=== PATIENT | female | born 1955 | race Asian ===

== ENCOUNTER 2023-01-22 19:18 | Inpatient (IN) | payer OTHER ==
[~2023-01-22] VITALS: Ht 157.5 cm; Wt 54.3 kg
[2023-01-22] MEDS ORDERED: ALBUTEROL SULFATE 2.5 MG/0.5 ML NEB SOLUTION NEB ONE (19:30)
[2023-01-22] MEDS ORDERED: IPRATROPIUM BROMIDE 0.5 MG/2.5 ML NEB SOLUTION NEB ONE (19:30)
[2023-01-22 19:47] LABS: ABG BASE EXCESS -7.2 mmol/L (-2.0-3.0); ABG METHEMOGLOBIN 0.2 % (0.0-1.5); ABG OXYGEN CONTENT 17.2 mL/dL (15.0-23.0); ABG OXYGEN SATURATION 85.5 % (95.0-98.0); ABG OXYHEMOGLOBIN 85.3 % (94.0-100.0); ABG PCO2 37 mmHg (35-45); ABG PH 7.329 (7.35-7.450); ABG TOTAL HEMOGLOBIN 14.4 G/dL (12.0-18.0); PO2, ARTERIAL BG 55.3 mmHg (79.0-87.0); SOURCE, BLOOD GAS ARTERIAL; TEMPERATURE, FAHRENHEIT, BG 98.6 FAHREN (96.0-98.6)
[2023-01-22 19:51] LABS: SITE, BLOOD GAS LFT RADIAL
[2023-01-22 19:52] LABS: O2 DEVICE,BLOOD GAS BIPAP (ROOM AIR)
[2023-01-22 19:58] LABS: COVID AG,FIA SOURCE NASAL SWAB
[2023-01-22 20:04] LABS: BASOPHILS % (AUTO) 0.4 % (0.0-2.0); EOSINOPHILS % (AUTO) 0.8 % (1.0-6.0); HEMATOCRIT 42.5 % (36-46); HEMOGLOBIN 13.9 g/dL (12.0-16.0); LYMPHOCYTES # (AUTO) 2.5 K/uL (1.0-4.8); LYMPHOCYTES % (AUTO) 41.9 % (22.0-44.0); MEAN CORPUSCULAR HEMOGLOBIN 31.1 pg (26.0-34.0); MEAN CORPUSCULAR HGB CONC 32.8 G/dL (31.0-37.0); MEAN CORPUSCULAR VOLUME 95 fL (80-100); MONOCYTES # (AUTO) 0.3 K/uL (0.1-1.0); MONOCYTES % (AUTO) 5.5 % (2.0-9.0); NEUTROPHILS # (AUTO) 3.1 K/uL (1.8-7.7); NEUTROPHILS % (AUTO) 51.4 % (40.0-70.0); PLATELET COUNT (AUTO) 387 K/uL (150-450); RED BLOOD CELL COUNT(AUTO) 4.48 MIL/uL (4.00-5.20); RED CELL DISTRIBUTION WIDTH 14.4 % (11.5-14.5)
[2023-01-22 20:12] LABS: ANION GAP 13 mmol/L (8-16); CALCIUM, TOTAL 8.8 mg/dL (8.8-10.5); CARBON DIOXIDE 24 mmol/L (22-29); CHLORIDE 98 mmol/L (98-107); CREATININE 0.82 mg/dL (0.60-1.30); GLOMERULAR FILTR. RATE CALC > 60 mL/min (>60); GLUCOSE,RANDOM 290 mg/dL (70-110); POTASSIUM 3.4 mmol/L (3.5-5.1); SODIUM SERUM 135 mmol/L (136-145)
[2023-01-22 20:20] LABS: INFLUENZA TYPE A NEGATIVE FOR TYPE A (NEGATIVE); INFLUENZA TYPE B NEGATIVE FOR TYPE B (NEGATIVE)
[2023-01-22 20:32] LABS: B-TYPE NATRIURETIC PEPTIDE 646 pg/mL (0-100)
[2023-01-22 20:37] LABS: ALANINE AMINOTRANSFERASE 9 U/L (12-78); ALKALINE PHOSPHATASE 74 U/L (46-116); ASPARTATE AMINOTRANSFERASE 23 U/L (15-37); BILIRUBIN,TOTAL 0.5 mg/dL (0.1-1.0); CREATINE KINASE, TOTAL ONLY 123 U/L (26-192); THYROID STIMULATING HORMONE 3.83 uIU/mL (0.36-3.74); TOTAL PROTEIN, SERUM 8.3 g/dL (6.4-8.2)
[2023-01-22] MEDS ORDERED: CefTRIAXone 1 GM/DEXTROSE 50 ML IV ONE (20:45)
[2023-01-22] MEDS ORDERED: AZITHROMYCIN 500 MG/NS 250 ML IV ONE (20:45)
[2023-01-22] MEDS ORDERED: FUROSEMIDE 40 MG/4 ML VIAL IVP ONE (20:45)
[2023-01-22 21:07] LABS: LACTIC ACID 4.3 mmol/L (0.4-2.0)
[2023-01-22] MEDS ORDERED: ACETAMINOPHEN 325 MG TABLET PO PRN (22:45)
[2023-01-22] MEDS ORDERED: 0.9% SODIUM CHLORIDE 10 ML SYRINGE IVP PRN (22:45)
[2023-01-22] MEDS ORDERED: *CLINICAL-LEVOFLOXACIN IVPB DOSING CLINICAL ONE (23:00)
[2023-01-22] MEDS ORDERED: MAGNESIUM HYDROXIDE SUSPENSION 30 ML UDCUP PO PRN (23:00)
[2023-01-22] MEDS ORDERED: BISACODYL 10 MG RECTAL RECTAL SUPPOSITORY PR PRN (23:00)
[2023-01-22] MEDS ORDERED: MORPHINE SULFATE 2 MG/ML SYRINGE IVP PRN (23:00)
[2023-01-22] MEDS ORDERED: ZOLPIDEM TARTRATE 5 MG TABLET PO PRN (23:00)
[2023-01-22] MEDS ORDERED: DEXTROSE 50%-WATER 25 GM/50 ML SYRINGE IVP PRN (23:00)
[2023-01-22] MEDS ORDERED: INSULIN LISPRO 100 UNITS/ML SQ PRN (23:00)
[2023-01-22] MEDS ORDERED: ONDANSETRON HCL 4 MG/2 ML VIAL IVP PRN (23:00)
[2023-01-22] MEDS ORDERED: HYDROCODONE/ACETAMINOPHEN 5-325 MG TABLET PO PRN (23:00)
[2023-01-23] VITALS (7 sets, daily range): BP systolic 89–129; BP diastolic 56–83
[2023-01-23] MEDS ORDERED: HEPARIN SODIUM,PORCINE 5,000 UNITS/ML VIAL SQ SCH
[2023-01-23] MEDS: LEVOFLOXACIN 750 MG/D5% WATER 150 ML IV SCH ×2 (00:12→23:25)
[2023-01-23] MEDS ORDERED: SODIUM CHLORIDE 0.9% 100 ML ONE (00:34)
[2023-01-23] MEDS ORDERED: IOHEXOL 350 MG/ML 100 ML VIAL ONE (00:34)
[2023-01-23 06:07] LABS: GLUCOMETER DEV NAME(LOC) 5S.2C; GLUCOSE,POINT OF CARE 115 MG/DL (70-110)
[2023-01-23 06:12] LABS: BASOPHILS % (AUTO) 0.1 % (0.0-2.0); EOSINOPHILS % (AUTO) 0.1 % (1.0-6.0); HEMOGLOBIN 12.5 g/dL (12.0-16.0); LYMPHOCYTES # (AUTO) 1.1 K/uL (1.0-4.8); MEAN CORPUSCULAR HEMOGLOBIN 31.5 pg (26.0-34.0); MEAN CORPUSCULAR HGB CONC 33.8 G/dL (31.0-37.0); MEAN CORPUSCULAR VOLUME 93 fL (80-100); MONOCYTES # (AUTO) 0.8 K/uL (0.1-1.0); MONOCYTES % (AUTO) 8.5 % (2.0-9.0); NEUTROPHILS # (AUTO) 7.4 K/uL (1.8-7.7); NEUTROPHILS % (AUTO) 79.3 % (40.0-70.0); PLATELET COUNT (AUTO) 329 K/uL (150-450); RED BLOOD CELL COUNT(AUTO) 3.96 MIL/uL (4.00-5.20); RED CELL DISTRIBUTION WIDTH 14.2 % (11.5-14.5)
[2023-01-23] MEDS ORDERED: POTASSIUM CHLORIDE 20 MEQ ER TABLET PO PRN (06:15)
[2023-01-23 06:22] LABS: ALANINE AMINOTRANSFERASE 16 U/L (12-78); ALBUMIN 3.4 g/dL (3.4-5.0); ALKALINE PHOSPHATASE 63 U/L (46-116); ANION GAP 9 mmol/L (8-16); ASPARTATE AMINOTRANSFERASE 20 U/L (15-37); BILIRUBIN,TOTAL 0.7 mg/dL (0.1-1.0); CALCIUM, TOTAL 8.3 mg/dL (8.8-10.5); CARBON DIOXIDE 28 mmol/L (22-29); CHLORIDE 100 mmol/L (98-107); CREATININE 0.58 mg/dL (0.60-1.30); GLOMERULAR FILTR. RATE CALC > 60 mL/min (>60); GLUCOSE,RANDOM 115 mg/dL (70-110); SODIUM SERUM 137 mmol/L (136-145)
[2023-01-23] MEDS ORDERED: HEPARIN SODIUM,PORCINE 5,000 UNITS/ML VIAL IVP ONE (08:45)
[2023-01-23] MEDS ORDERED: HEPARIN SODIUM,PORCINE 5,000 UNITS/ML VIAL IVP PRN (08:45)
[2023-01-23] MEDS: PANTOPRAZOLE SODIUM 40 MG DR TABLET PO SCH (09:00)
[2023-01-23] MEDS ORDERED: CARVEDILOL 3.125 MG TABLET PO SCH (09:00)
[2023-01-23] MEDS ORDERED: BENAZEPRIL HCL 5 MG TABLET PO SCH (09:00)
[2023-01-23] MEDS: DOCUSATE SODIUM 100 MG CAPSULE PO SCH ×2 (09:00→20:14)
[2023-01-23 09:08] LABS: BASOPHILS % (AUTO) 0.3 % (0.0-2.0); EOSINOPHILS % (AUTO) 0.2 % (1.0-6.0); HEMATOCRIT 38.4 % (36-46); HEMOGLOBIN 13.1 g/dL (12.0-16.0); LYMPHOCYTES # (AUTO) 1.2 K/uL (1.0-4.8); LYMPHOCYTES % (AUTO) 14.5 % (22.0-44.0); MEAN CORPUSCULAR HEMOGLOBIN 31.8 pg (26.0-34.0); MEAN CORPUSCULAR HGB CONC 34.1 G/dL (31.0-37.0); MEAN CORPUSCULAR VOLUME 94 fL (80-100); MONOCYTES # (AUTO) 0.7 K/uL (0.1-1.0); MONOCYTES % (AUTO) 9.1 % (2.0-9.0); NEUTROPHILS # (AUTO) 6.1 K/uL (1.8-7.7); NEUTROPHILS % (AUTO) 75.9 % (40.0-70.0); PLATELET COUNT (AUTO) 330 K/uL (150-450); RED CELL DISTRIBUTION WIDTH 14.2 % (11.5-14.5)
[2023-01-23 09:21] LABS: PROTHROMBIN TIME 10.9 SEC (9.4-11.6)
[2023-01-23] MEDS: FUROSEMIDE 40 MG/4 ML VIAL IVP SCH ×2 (10:11→20:14)
[2023-01-23] MEDS: HEPARIN SODIUM 25000 UNITS/D5W 250 ML IV PRN (10:11)
[2023-01-23 12:06] LABS: GLUCOMETER DEV NAME(LOC) 5N.1C; GLUCOSE,POINT OF CARE 114 MG/DL (70-110)
[2023-01-23 18:02] LABS: GLUCOSE,POINT OF CARE 100 MG/DL (70-110)
[2023-01-23] MEDS ORDERED: SODIUM CHLORIDE 0.9% 250 ML IV ONE (20:11)
[2023-01-23 23:16] LABS: GLUCOSE,POINT OF CARE 134 MG/DL (70-110)
[2023-01-23] MEDS: ETHYL ALCOHOL 62% ANTISEPTIC NASAL SANITIZER 0.6 ML AMPUL NASAL SCH (23:25)
[2023-01-24] VITALS: BP 87/66
[2023-01-24 04:00] VITALS: BP 113/70
[2023-01-24 05:30] LABS: APPEARANCE,URINE CLEAR (CLEAR); BILIRUBIN,URINE NEGATIVE (NEGATIVE); GLUCOSE, URINE (UA) NEGATIVE (NEGATIVE); KETONES,URINE TRACE mg/dL (NEGATIVE); LEUKOCYTE ESTERASE ,URINE NEGATIVE (NEGATIVE); NITRATE,URINE NEGATIVE (NEGATIVE); OCCULT BLOOD,URINE TRACE (NEGATIVE); PH,URINE 6.5 (5.0-8.0); PROTEIN,URINE NEGATIVE (NEGATIVE); SPECIFIC GRAVITIY, URINE 1.009 (1.003-1.030); UROBILINOGEN,URINE <=1.0 mg/dL (<=1.0)
[2023-01-24 05:56] LABS: BACTERIA,URINE None Seen /HPF (None Seen); RBC,URINE 0-2 /HPF (0-2); SQUAMOUS EPITHELIAL CELL,UR Few /LPF (None Seen); WBC,URINE None Seen /HPF (0-5)
[2023-01-24 06:16] LABS: BASOPHILS % (AUTO) 0.3 % (0.0-2.0); EOSINOPHILS % (AUTO) 0.7 % (1.0-6.0); HEMOGLOBIN 13.9 g/dL (12.0-16.0); LYMPHOCYTES % (AUTO) 21.7 % (22.0-44.0); MEAN CORPUSCULAR HEMOGLOBIN 31.8 pg (26.0-34.0); MEAN CORPUSCULAR VOLUME 94 fL (80-100); MONOCYTES # (AUTO) 0.4 K/uL (0.1-1.0); NEUTROPHILS # (AUTO) 3.2 K/uL (1.8-7.7); NEUTROPHILS % (AUTO) 68.3 % (40.0-70.0); PLATELET COUNT (AUTO) 330 K/uL (150-450); RED BLOOD CELL COUNT(AUTO) 4.38 MIL/uL (4.00-5.20); RED CELL DISTRIBUTION WIDTH 14.1 % (11.5-14.5)
[2023-01-24 06:25] LABS: ANION GAP 12 mmol/L (8-16); CARBON DIOXIDE 27 mmol/L (22-29); CHLORIDE 99 mmol/L (98-107); CREATININE 0.76 mg/dL (0.60-1.30); GLOMERULAR FILTR. RATE CALC > 60 mL/min (>60); GLUCOSE,RANDOM 133 mg/dL (70-110); SODIUM SERUM 138 mmol/L (136-145)
[2023-01-24 06:27] LABS: POTASSIUM 2.9 mmol/L (3.5-5.1)
[2023-01-24] MEDS: POTASSIUM CHL 10 MEQ/WATER 50 ML IV PRN ×2 (06:46→08:38)
[2023-01-24 07:06] LABS: GLUCOSE,POINT OF CARE 99 MG/DL (70-110)
[2023-01-24 08:00] VITALS: BP 121/77
[2023-01-24] MEDS: PANTOPRAZOLE SODIUM 40 MG DR TABLET PO SCH (08:35)
[2023-01-24] MEDS: ETHYL ALCOHOL 62% ANTISEPTIC NASAL SANITIZER 0.6 ML AMPUL NASAL SCH ×2 (08:35→21:04)
[2023-01-24] MEDS: FUROSEMIDE 40 MG/4 ML VIAL IVP SCH ×2 (08:36→21:04)
[2023-01-24] MEDS: DOCUSATE SODIUM 100 MG CAPSULE PO SCH ×2 (08:37→21:00)
[2023-01-24] MEDS ORDERED: POTASSIUM CHLORIDE 20 MEQ ER TABLET PO ONE (09:30)
[2023-01-24 12:00] VITALS: BP 109/70
[2023-01-24 14:26] LABS: POTASSIUM 4.5 mmol/L (3.5-5.1)
[2023-01-24] MEDS: LOSARTAN POTASSIUM 25 MG TABLET PO SCH (14:47)
[2023-01-24 15:06] LABS: GLUCOSE,POINT OF CARE 179 MG/DL (70-110)
[2023-01-24 15:06] LABS: GLUCOSE,POINT OF CARE 142 MG/DL (70-110)
[2023-01-24 16:00] VITALS: BP 127/91
[2023-01-24 16:59] LABS: MAGNESIUM 2.2 mg/dL (1.80-2.40)
[2023-01-24] MEDS: HEPARIN SODIUM 25000 UNITS/D5W 250 ML IV PRN (18:29)
[2023-01-24 20:00] VITALS: BP 110/74
[2023-01-24] MEDS: LEVOFLOXACIN 750 MG/D5% WATER 150 ML IV SCH (23:02)
[2023-01-25] VITALS (7 sets, daily range): BP systolic 95–130; BP diastolic 47–81
[2023-01-25 06:12] LABS: BASOPHILS % (AUTO) 0.5 % (0.0-2.0); EOSINOPHILS % (AUTO) 0.5 % (1.0-6.0); HEMATOCRIT 41.2 % (36-46); HEMOGLOBIN 13.8 g/dL (12.0-16.0); LYMPHOCYTES # (AUTO) 1.9 K/uL (1.0-4.8); LYMPHOCYTES % (AUTO) 27.9 % (22.0-44.0); MEAN CORPUSCULAR HEMOGLOBIN 31.6 pg (26.0-34.0); MEAN CORPUSCULAR HGB CONC 33.6 G/dL (31.0-37.0); MEAN CORPUSCULAR VOLUME 94 fL (80-100); MONOCYTES # (AUTO) 0.7 K/uL (0.1-1.0); MONOCYTES % (AUTO) 10.8 % (2.0-9.0); NEUTROPHILS % (AUTO) 60.3 % (40.0-70.0); PLATELET COUNT (AUTO) 360 K/uL (150-450); RED BLOOD CELL COUNT(AUTO) 4.38 MIL/uL (4.00-5.20); RED CELL DISTRIBUTION WIDTH 14.1 % (11.5-14.5)
[2023-01-25 06:15] LABS: ANION GAP 7 mmol/L (8-16); CALCIUM, TOTAL 9.2 mg/dL (8.8-10.5); CARBON DIOXIDE 27 mmol/L (22-29); CHLORIDE 100 mmol/L (98-107); CREATININE 0.92 mg/dL (0.60-1.30); GLOMERULAR FILTR. RATE CALC > 60 mL/min (>60); GLUCOSE,RANDOM 120 mg/dL (70-110); POTASSIUM 3.8 mmol/L (3.5-5.1); SODIUM SERUM 134 mmol/L (136-145)
[2023-01-25] MEDS: HEPARIN SODIUM,PORCINE 5,000 UNITS/ML VIAL IVP PRN ×2 (07:44→14:56)
[2023-01-25] MEDS: FUROSEMIDE 40 MG/4 ML VIAL IVP SCH ×2 (08:15→21:10)
[2023-01-25] MEDS: ETHYL ALCOHOL 62% ANTISEPTIC NASAL SANITIZER 0.6 ML AMPUL NASAL SCH ×2 (08:15→21:10)
[2023-01-25] MEDS: PANTOPRAZOLE SODIUM 40 MG DR TABLET PO SCH (08:16)
[2023-01-25] MEDS: DOCUSATE SODIUM 100 MG CAPSULE PO SCH ×2 (08:16→21:09)
[2023-01-25] MEDS: LOSARTAN POTASSIUM 25 MG TABLET PO SCH ×2 (08:18→08:34)
[2023-01-25] MEDS: METOPROLOL SUCCINATE 25 MG ER TABLET PO SCH ×2 (09:00→14:59)
[2023-01-25] MEDS ORDERED: METOPROLOL SUCCINATE 25 MG ER TABLET PO SCH (09:00)
[2023-01-26] VITALS (7 sets, daily range): BP systolic 96–115; BP diastolic 64–81
[2023-01-26] MEDS: HEPARIN SODIUM,PORCINE 5,000 UNITS/ML VIAL IVP PRN (00:17)
[2023-01-26] MEDS: LEVOFLOXACIN 750 MG/D5% WATER 150 ML IV SCH ×2 (00:29→23:11)
[2023-01-26] MEDS: HEPARIN SODIUM 25000 UNITS/D5W 250 ML IV PRN (02:36)
[2023-01-26] MEDS: LOSARTAN POTASSIUM 25 MG TABLET PO SCH (07:46)
[2023-01-26] MEDS: PANTOPRAZOLE SODIUM 40 MG DR TABLET PO SCH (07:46)
[2023-01-26] MEDS: DOCUSATE SODIUM 100 MG CAPSULE PO SCH ×2 (07:46→20:18)
[2023-01-26] MEDS: FUROSEMIDE 40 MG/4 ML VIAL IVP SCH (08:39)
[2023-01-26] MEDS: ETHYL ALCOHOL 62% ANTISEPTIC NASAL SANITIZER 0.6 ML AMPUL NASAL SCH ×2 (08:39→20:18)
[2023-01-26] MEDS: METOPROLOL SUCCINATE 25 MG ER TABLET PO SCH (14:00)
[2023-01-26] MEDS ORDERED: FUROSEMIDE 40 MG TABLET PO SCH (21:00)
[2023-01-27 04:25] VITALS: BP 121/75
[2023-01-27] MEDS: HEPARIN SODIUM 25000 UNITS/D5W 250 ML IV PRN (05:43)
[2023-01-27] MEDS ORDERED: IOHEXOL 300 MG/ML 100 ML VIAL ONE (06:50)
[2023-01-27] MEDS ORDERED: VERAPAMIL HCL 2.5 MG/ML 2 ML VIAL ONE (06:50)
[2023-01-27] MEDS ORDERED: LIDOCAINE/PF 1% 30 ML VIAL ONE (06:50)
[2023-01-27] MEDS ORDERED: NITROGLYCERIN 50 MG/D5% WATER 250 ML ONE (06:50)
[2023-01-27] MEDS ORDERED: SODIUM BICARBONATE 50 MEQ/50 ML VIAL ONE (06:50)
[2023-01-27] MEDS ORDERED: HEPARIN SODIUM 1000 UNITS/NS 1,000 ML ONE (06:51)
[2023-01-27 07:17] LABS: CALCIUM, TOTAL 9.5 mg/dL (8.8-10.5); CREATININE 1.61 mg/dL (0.60-1.30); POTASSIUM 3.4 mmol/L (3.5-5.1)
[2023-01-27 07:25] LABS: BASOPHILS % (AUTO) 0.6 % (0.0-2.0); EOSINOPHILS % (AUTO) 1.2 % (1.0-6.0); HEMATOCRIT 41.9 % (36-46); HEMOGLOBIN 14.1 g/dL (12.0-16.0); LYMPHOCYTES # (AUTO) 1.3 K/uL (1.0-4.8); LYMPHOCYTES % (AUTO) 14.8 % (22.0-44.0); MEAN CORPUSCULAR HEMOGLOBIN 31.5 pg (26.0-34.0); MEAN CORPUSCULAR HGB CONC 33.6 G/dL (31.0-37.0); MEAN CORPUSCULAR VOLUME 94 fL (80-100); MONOCYTES # (AUTO) 1.1 K/uL (0.1-1.0); MONOCYTES % (AUTO) 12.5 % (2.0-9.0); NEUTROPHILS # (AUTO) 6.3 K/uL (1.8-7.7); NEUTROPHILS % (AUTO) 70.9 % (40.0-70.0); PLATELET COUNT (AUTO) 396 K/uL (150-450); RED BLOOD CELL COUNT(AUTO) 4.46 MIL/uL (4.00-5.20); RED CELL DISTRIBUTION WIDTH 14.2 % (11.5-14.5)
[2023-01-27 07:30] VITALS: BP 120/73
[2023-01-27] MEDS ORDERED: MIDAZOLAM HCL 2 MG/2 ML VIAL ONE (07:35)
[2023-01-27] MEDS ORDERED: FentaNYL CITRATE PF 100 MCG/2 ML VIAL ONE (07:35)
[2023-01-27] MEDS ORDERED: LIDOCAINE 1% 30 ML/SOD BICARB 8.4% 4 ML SQ ONE (07:45)
[2023-01-27] MEDS ORDERED: IOHEXOL 300 MG/ML 100 ML VIAL ICOR ONE (07:45)
[2023-01-27] MEDS ORDERED: SODIUM CHLORIDE 0.9% 500 ML IV ONE (07:45)
[2023-01-27] MEDS ORDERED: HEPARIN SODIUM 1000 UNITS/NS 1,000 ML IARTER ONE (07:45)
[2023-01-27] MEDS ORDERED: PHENYLEPHRINE HCL IN 0.9% NACL 400 MCG/10 ML SYRINGE IVP ONE ×2 (08:01→08:15)
[2023-01-27] MEDS ORDERED: MIDAZOLAM HCL 2 MG/2 ML VIAL IVP ONE (08:15)
[2023-01-27] MEDS ORDERED: NITROGLYCERIN/D5W 50 MG/250 ML IV BOTTLE IARTER ONE (08:15)
[2023-01-27] MEDS ORDERED: HEPARIN SODIUM,PORCINE 1,000 UNITS/ML 10 ML VIAL IARTER ONE (08:15)
[2023-01-27] MEDS ORDERED: VERAPAMIL HCL 2.5 MG/ML 2 ML VIAL IARTER ONE (08:15)
[2023-01-27] MEDS ORDERED: FentaNYL CITRATE PF 100 MCG/2 ML VIAL IVP ONE (08:15)
[2023-01-27 08:20] VITALS: BP 106/64
[2023-01-27] MEDS ORDERED: SODIUM CHLORIDE 0.9% 1,000 ML IV ONE (08:30)
[2023-01-27] MEDS: LOSARTAN POTASSIUM 25 MG TABLET PO SCH (09:00)
[2023-01-27] MEDS: PANTOPRAZOLE SODIUM 40 MG DR TABLET PO SCH (09:19)
[2023-01-27] MEDS: ETHYL ALCOHOL 62% ANTISEPTIC NASAL SANITIZER 0.6 ML AMPUL NASAL SCH ×2 (09:19→20:24)
[2023-01-27] MEDS: DOCUSATE SODIUM 100 MG CAPSULE PO SCH ×2 (09:19→20:24)
[2023-01-27 12:03] VITALS: BP 103/63
[2023-01-27] MEDS: ACETAMINOPHEN 325 MG TABLET PO PRN ×2 (12:30→20:26)
[2023-01-27] MEDS: METOPROLOL SUCCINATE 25 MG ER TABLET PO SCH (13:58)
[2023-01-27 15:01] VITALS: BP 134/74
[2023-01-27] MEDS ORDERED: POTASSIUM CHLORIDE 20 MEQ ER TABLET PO ONE (15:45)
[2023-01-27] MEDS: APIXABAN 5 MG TABLET PO SCH (20:24)
[2023-01-27] MEDS: SACUBITRIL/VALSARTAN 24-26 MG TABLET PO SCH (20:25)
[2023-01-27 20:28] VITALS: BP 112/63
[2023-01-28 00:42] VITALS: BP 96/65
[2023-01-28 05:18] VITALS: BP 116/71
[2023-01-28 06:56] LABS: CREATININE 1.23 mg/dL (0.60-1.30); POTASSIUM 3.8 mmol/L (3.5-5.1)
[2023-01-28 07:15] VITALS: BP 120/77
[2023-01-28] MEDS: DOCUSATE SODIUM 100 MG CAPSULE PO SCH (09:02)
[2023-01-28] MEDS: SACUBITRIL/VALSARTAN 24-26 MG TABLET PO SCH (09:02)
[2023-01-28] MEDS: APIXABAN 5 MG TABLET PO SCH (09:02)
[2023-01-28] MEDS: ETHYL ALCOHOL 62% ANTISEPTIC NASAL SANITIZER 0.6 ML AMPUL NASAL SCH (09:02)
[2023-01-28] MEDS: PANTOPRAZOLE SODIUM 40 MG DR TABLET PO SCH (09:02)
[2023-01-28] MEDS: ACETAMINOPHEN 325 MG TABLET PO PRN (09:08)
[2023-01-28] MEDS ORDERED: METO25XL PO (11:16)
[2023-01-28] MEDS ORDERED: PANT-31 PO (11:16)
[2023-01-28] MEDS ORDERED: APIX5TAB PO (11:16)
[2023-01-28] MEDS ORDERED: SACU1TAB PO (11:16)
[2023-01-28] MEDS ORDERED: LEVO750T68 PO (11:16)
[2023-01-28 12:20] VITALS: BP 94/61
[2023-01-28] MEDS ORDERED: LEVOFLOXACIN 750 MG/D5% WATER 150 ML IV SCH (23:00)
[2023-02-03] MEDS ORDERED: APIXABAN 5 MG TABLET PO SCH (21:00)
== END 2023-01-28 14:40 | disposition home or self-care (01) | DRG 280 ==
LOC: EMS 19:19 → 5S 01-23 02:22 → ICU 01-23 02:28 → 5S 01-25 17:56
PROVIDERS: ADMIT Internal Medicine; ATTEND Internal Medicine
PROC: 5A09357 Assistance with Respiratory Ventilation, Less than 24 Consecutive Hours, Continuous Positive Airway Pressure (ICD-10-PCS; 2023-01-23)
PROC: 4A023N7 Measurement of Cardiac Sampling and Pressure, Left Heart, Percutaneous Approach (ICD-10-PCS; principal; 2023-01-27)
PROC: B2111ZZ Fluoroscopy of Multiple Coronary Arteries using Low Osmolar Contrast (ICD-10-PCS; 2023-01-27)
PROC: 5A09357 Assistance with Respiratory Ventilation, Less than 24 Consecutive Hours, Continuous Positive Airway Pressure (ICD-10-PCS; 2023-01-27)
DX: I11.0 Hypertensive heart disease with heart failure (principal); I21.4 Non-ST elevation (NSTEMI) myocardial infarction; I26.99 Other pulmonary embolism without acute cor pulmonale; J96.01 Acute respiratory failure with hypoxia; R65.11 Systemic inflammatory response syndrome (SIRS) of non-infectious origin with acute organ dysfunction; I50.43 Acute on chronic combined systolic (congestive) and diastolic (congestive) heart failure; E87.20 Acidosis, unspecified; N17.9 Acute kidney failure, unspecified; I42.9 Cardiomyopathy, unspecified; Z20.822 Contact with and (suspected) exposure to COVID-19; I25.10 Atherosclerotic heart disease of native coronary artery without angina pectoris; R73.9 Hyperglycemia, unspecified; E87.6 Hypokalemia; I95.9 Hypotension, unspecified; T45.1X5A Adverse effect of antineoplastic and immunosuppressive drugs, initial encounter; Z85.3 Personal history of malignant neoplasm of breast; Z90.10 Acquired absence of unspecified breast and nipple; Z92.21 Personal history of antineoplastic chemotherapy; Y92.89 Other specified places as the place of occurrence of the external cause
CPT/HCPCS: 36600; 71045; 71275; 80048; 80053; 81001; 82271; 82550; 82805; 82962; 83605; 83735; 83880; 84132; 84145; 84443; 84484; 85025; 85379; 85610; 85730; 87040; 87081; 87804; 93005; 93306; 93970; 94644; 94660; 99291; G0378; J0456; J0696; J1644; J1940; J1956; J2250; J3010; J3480; J3490; J7050; Q9967; 36415-L1; 36415-TC; J7613; Z7610